=== PATIENT | female | born 1995 | race African-American/Black ===

== ENCOUNTER 2017-01-30 04:28 | Emergency (ER) | payer OTHER ==
[~2017-01-30] VITALS: Ht 162.6 cm; Wt 54.4 kg
[2017-01-30 04:49] LABS: URINE BILIRUBIN NEGATIVE (Negative); URINE BLOOD 3+ (Negative); URINE COLOR YELLOW; URINE GLUCOSE-RANDOM* NEGATIVE (Negative); URINE KETONES NEGATIVE (Negative); URINE LEUKOCYTES-REFLEX 1+ (Negative); URINE PROTEIN (DIPSTICK) TRACE (Negative); URINE UROBILINOGEN 0.2 E.U./dl (0.2-1.0)
[2017-01-30 04:55] LABS: HEMATOCRIT 35.9 % (37.0-47.0); HEMOGLOBIN 11.8 gm/dL (12.0-15.0); MCH 28.4 pg (26.0-34.0); MCHC 32.8 g/dL (28.0-37.0); MCV 86.6 fL (80.0-100.0); PLATELET COUNT 357 thou/uL (150-400); RBC 4.14 mil/uL (4.20-5.00); RDW 13.8 % (10.5-14.5); WBC 9.1 thou/uL (4.0-11.0)
[2017-01-30 04:56] LABS: MANUAL DIFF YES
[2017-01-30 05:00] LABS: SQUAMOUS 4-10 Moderate /LPF (0-3)
[2017-01-30 05:02] LABS: CASTS None Seen /LPF (None Seen); CRYSTALS None Seen /LPF (None Seen)
[2017-01-30 05:03] LABS: URINE WBC-REFLEX 0-5 Rare /HPF (0-5)
[2017-01-30 05:08] LABS: CALCIUM 8.5 mg/dL (8.5-10.1); POTASSIUM 3.2 mmol/L (3.5-5.1)
[2017-01-30] MEDS ORDERED: KEFLEX500 MG PO (06:05)
[2017-01-30] MEDS ORDERED: ZOFRAN ODT4 MG PO (06:05)
[2017-01-30] MEDS ORDERED: NORCO 5-325 TA1 EACH PO (06:05)
[2017-01-30 06:13] VITALS: BP 117/69
[2017-01-30 07:22] LABS: ABSOLUTE NEUTROPHILS 2.2 thou/uL (1.4-8.2); TOTAL CELL COUNT 100
[2017-01-30 07:23] LABS: ATYPICAL LYMPHS 2 %
== END 2017-01-30 06:34 | disposition home or self-care (01) ==
LOC: ER 04:28
PROVIDERS: Emergency Medicine
DX: N39.0 Urinary tract infection, site not specified (principal); E87.6 Hypokalemia; N20.1 Calculus of ureter; J45.909 Unspecified asthma, uncomplicated; Z90.89 Acquired absence of other organs